=== PATIENT | female | born 1945 | race Caucasian/White ===

== ENCOUNTER → 2023-08-15 11:28 | Outpatient (REF) | payer MEDICARE, OTHER, SELFPAY ==
[2023-08-15 12:09] LABS: Urine Albumin 3+ (Neg - Trace); Urine Bilirubin Negative (Negative); Urine Character Clear (Clear); Urine Color Yellow; Urine Glucose Negative (Negative); Urine Ketone Negative (Negative); Urine Leukocyte Trace (Negative); Urine Nitrite Negative (Negative); Urine Occult Blood Negative (Negative); Urine Specific Gravity 1.015 (<1.030); Urine Urobilinogen Negative (Neg - 1+)
[2023-08-15 12:32] LABS: Urine Bacteria Few (Negative); Urine Red Blood Cell 0-2 /HPF (0-2); Urine White Cell 0-2 /HPF (0-5)
[2023-08-15 12:33] LABS: Calcium 9.9 mg/dl (8.4-10.2)
[2023-08-15 12:49] LABS: Vitamin D, 25-OH*** 48.6 ng/mL (30-80)
[2023-08-15 12:53] LABS: Intact PTH 76.9 pg/ml (13.6-85.8)
[2023-08-15 13:03] LABS: TSH Reflex To Free T4 2.77 uIU/ml (0.47-4.68)
[2023-08-15 13:47] LABS: Microalbumin, Random Urine > 57.0 mg/dl (0.6-1.7)
== END ==
LOC: REG 11:28
PROVIDERS: ATTENDING PHYSICIAN Student in an Organized Health Care Education/Training Program
DX: E06.3 Autoimmune thyroiditis (principal); I49.8 Other specified cardiac arrhythmias; E83.52 Hypercalcemia; E11.65 Type 2 diabetes mellitus with hyperglycemia
CPT/HCPCS: 36415; 81003; 81015; 82043; 82306; 82570; 83970; 84443